=== PATIENT | male | born 1950 | race African-American/Black ===

== ENCOUNTER 2017-12-17 09:03 | Emergency (ER) | payer OTHER ==
--- NOTE | 2017-12-17 09:47 | EDPHY ---
HPI/HX/ROS/PE/MDM Narrative: CHIEF COMPLAINT: Chest pain HISTORY OF PRESENT ILLNESS: The patient is a 67 y/o male with a history of hypertension complaining of right -sided chest pain onset yesterday morning. After the chest pain started he took two Aspirin and then subsequently slept all day yesterday and last night, which is abnormal. The pain is currently localized to the right side of his chest and is a 6/10. He occasionally has mild shortness of breath. While walking around he feels mildly lightheaded. The pain does not change when he takes a deep breath. Denies history of DVT or PE, denies smoking although he did smoke cigars 15 years ago. He has also had right lower jaw pain for the last several months, which he has seen a dentist for. He denies taking antibiotics for the dental pain. No fever, chills, palpitations, vomiting, diarrhea, urinary complaints, headache. REVIEW OF SYSTEMS: Aside from elements discussed in the HPI, a comprehensive 10-system review of systems was reviewed and is negative. PAST MEDICAL HISTORY: Hypertension, BPH SOCIAL HISTORY: Friend at bedside, employed, former cigar smoker VITAL SIGNS: Reviewed by me GENERAL: Well-developed, well-nourished, resting comfortably in no respiratory distress. HEENT: Atraumatic. Eyes: No icterus, no injection. Mouth: moist mucous membranes. No erythema or lesions. Neck: supple with no adenopathy. LUNGS: Clear to auscultation bilaterally, no wheezes, rhonchi or rales. CARDIAC: Regular rate and rhythm, no rubs, murmurs or gallops. ABDOMEN: Soft, nontender, nondistended, bowel sounds normal. BACK: No CVA tenderness. EXTREMITIES: No trauma. No edema. Range of motion is normal throughout. NEURO: Alert and oriented, grossly nonfocal. SKIN: Warm and dry, no rash. PSYCHIATRIC: Normal mentation, no agitation. Portions of this note were transcribed by a medical record librarians teacher. I personally performed a history, physical exam, medical decision making, and confirmed accuracy of information the transcribed note. ED Course: The patient is a 67 y/o male with a history of hypertension complaining of right -sided chest pain and fatigue onset yesterday morning. He has a normal exam including a regular heart and clear lungs. Labs, EKG, and chest x-ray ordered; 324mg PO Aspirin administered. 0918: 12-LEAD EKG: Please see the full report in [facility]. My interpretation: Sinus rhythm with a rate of 52, probable left atrial enlargement , left ventricular hypertrophy. No significant ST or T-wave changes. 1049: I reviewed patient's chest x-ray which reveals a bronchitis. Radiologist reading still pending. 1147: I spoke with the radiologist who agrees with my findings of bronchitis. Albuterol nebulizer administered prior to discharge. Reassessed patient and discussed laboratory and imaging findings. I have prescribed him an albuterol inhaler. Return precautions provided; patient is comfortable with this plan. 67-year-old male with history of hypertension with right-sided pain. Pain is been present since yesterday. He does report a mild URI as well. Troponin negative. D-dimer negative. Chest x-ray demonstrates mild bronchitis. Patient better following a neb. Patient also has a mildly elevated lipase. His possible at some of this right-sided pain is secondary to mild pancreatitis although the patient denies any nausea or vomiting. Liver function tests are normal. Patient will require follow-up. MDM: After history and physical examination, the differential for chest pain was considered, including but not limited to, myocardial ischemia, acute coronary syndrome, pulmonary embolus, chest wall pain, pleural inflammation and pulmonary infectious causes. - Data Points Imaging Results: Imaging Impressions Chest X-Ray 12/17/17 10:04 Impression: Possible airways disease/bronchitis. Imaging: Discussed imaging studies w/ vallez filter operator Radiologist, I viewed and interpreted images myself Laboratory Results: Laboratory Results 12/17/17 09:23 12/17/17 09:23 12/17/17 12/17/17 12/17/17 09:23 09:23 09:23 WBC 5.37 10^3/uL 10^3/uL (3.80-9.50) RBC 5.60 10^6/uL 10^6/uL (4.40-6.38) Hgb 14.0 g/dL g/dL (13.7-17.5) Hct 44.9 % % (40.0-51.0) MCV 80.2 fL L fL (81.5-99.8) MCH 25.0 pg L pg (27.9-34.1) MCHC 31.2 g/dL L g/dL (32.4-36.7) RDW 14.5 % % (11.5-15.2) Plt Count 182 10^3/uL 10^3/uL (150-400) MPV 10.9 fL fL (8.7-11.7) Neut % (Auto) 67.0 % % (39.3-74.2) Lymph % (Auto) 22.9 % % (15.0-45.0) Gove % (Auto) 6.3 % % (4.5-13.0) Eos % (Auto) 3.2 % % (0.6-7.6) Baso % (Auto) 0.4 % % (0.3-1.7) Nucleat RBC Rel Count 0.0 % % (0.0-0.2) Absolute Neuts (auto) 3.60 10^3/uL 10^3/uL (1.70-6.50) Absolute Lymphs (auto) 1.23 10^3/uL 10^3/uL (1.00-3.00) Absolute Monos (auto) 0.34 10^3/uL 10^3/uL (0.30-0.80) Absolute Eos (auto) 0.17 10^3/uL 10^3/uL (0.03-0.40) Absolute Basos (auto) 0.02 10^3/uL 10^3/uL (0.02-0.10) Absolute Nucleated RBC 0.00 10^3/uL 10^3/uL (0-0.01) Immature Gran % 0.2 % % (0.0-1.1) Immature Gran # 0.01 10^3/uL 10^3/uL (0.00-0.10) D-Dimer 0.28 ug/mLFEU ug/mLFEU (0.00-0.50) Sodium 140 mEq/L mEq/L (135-145) Potassium 3.8 mEq/L mEq/L (3.3-5.0) Chloride 105 mEq/L mEq/L (97-110) Carbon Dioxide 24 mEq/l mEq/l (22-31) Anion Gap 11 mEq/L mEq/L (8-16) BUN 12 mg/dL mg/dL (7-23) Creatinine 1.2 mg/dL mg/dL (0.7-1.3) Estimated GFR 60 Glucose 106 mg/dL H mg/dL (70-100) Calcium 9.6 mg/dL mg/dL (8.5-10.4) Total Bilirubin 0.5 mg/dL mg/dL (0.1-1.4) Conjugated Bilirubin 0.1 mg/dL mg/dL (0.0-0.5) Unconjugated Bilirubin 0.4 mg/dL mg/dL (0.0-1.1) AST 26 IU/L IU/L (17-59) ALT 35 IU/L IU/L (21-72) Alkaline Phosphatase 57 IU/L IU/L (38-126) POC Troponin I Total Protein 7.1 g/dL g/dL (6.3-8.2) Albumin 4.0 g/dL g/dL (3.5-5.0) Lipase 437 IU/L H IU/L (23-300) 12/17/17 09:23 WBC RBC Hgb Hct MCV MCH MCHC RDW Plt Count MPV Neut % (Auto) Lymph % (Auto) Gove % (Auto) Eos % (Auto) Baso % (Auto) Nucleat RBC Rel Count Absolute Neuts (auto) Absolute Lymphs (auto) Absolute Monos (auto) Absolute Eos (auto) Absolute Basos (auto) Absolute Nucleated RBC Immature Gran % Immature Gran # D-Dimer Sodium Potassium Chloride Carbon Dioxide Anion Gap BUN Creatinine Estimated GFR Glucose Calcium Total Bilirubin Conjugated Bilirubin Unconjugated Bilirubin AST ALT Alkaline Phosphatase POC Troponin I 0.01 ng/mL ng/mL (0.00-0.08) Total Protein Albumin Lipase Medications Given: Discontinued Medications Albuterol (Proventil Neb) 3 ml IH EDNOW ONE Stop: 12/17/17 11:51 Last Admin: 12/17/17 12:13 Dose: 3 ml Aspirin (Aspirin) 324 mg PO EDNOW ONE Stop: 12/17/17 10:05 Last Admin: 12/17/17 10:15 Dose: 324 mg Point of Care Test Results: Chemistry 12/17/17 09:23 POC Troponin I 0.01 ng/mL ng/mL (0.00-0.08) General Time Seen by Provider: 12/17/17 09:40 Initial Vital Signs: Initial Vital Signs Temperature (C) 36.9 C 12/17/17 09:08 Heart Rate 65 12/17/17 09:08 Respiratory Rate 16 12/17/17 09:08 Blood Pressure 116/92 H 12/17/17 09:08 O2 Sat (%) 95 12/17/17 09:08 O2 Delivery Mode Room Air Allergies/Adverse Reactions: No Known Allergies Allergy (Unverified 12/17/17 09:07) Home Medications: Medication Instructions Recorded Albuterol Hfa Anes Only [Proair 2 puffs IH QID #1 mdi 12/17/17 Hfa Icu (*)] Flomax 12/17/17 Departure - Departure Disposition: Home, Routine, Self-Care Clinical Impression: Bronchitis, Elevated lipase Condition: Good Instructions: Acute Bronchitis (ED), Chest Pain (ED) Additional Instructions: Use the albuterol inhaler as prescribed for your bronchitis. Follow-up with your primary doctor within 72 hours. Return to the Emergency Department for fever, chest pain, shortness of breath, increasing pain or other worsening of condition. Referrals: Demetrio Murphy MD [Primary Care Provider] - As per Instructions Prescriptions: Albuterol Hfa Anes Only [Proair Hfa Icu (*)] 2 puffs IH QID #1 mdi Report Scribed for: Louise Deras Report Scribed by: Laya Ribeiro Date of Report: 12/17/17 Time of Report: 09:47
[2017-12-17] MEDS ORDERED: ASPIRIN 81 MG CHEWABLE TAB PO ONE (10:04)
[2017-12-17 10:18] LABS: PLATELET COUNT 182 10^3/uL (150-400)
[2017-12-17] MEDS ORDERED: ALBUTEROL 3 ML DEYVIAL IH ONE (11:50)
[2017-12-17 12:20] VITALS: BP 160/78
--- NOTE | 2017-12-17 16:11 | CPEKG ---
Test Reason : OPEN Blood Pressure : / mmHG Vent. Rate : 052 BPM Atrial Rate : 051 BPM P-R Int : 145 ms QRS Dur : 109 ms QT Int : 410 ms P-R-T Axes : 076 062 058 degrees QTc Int : 382 ms Sinus rhythm Probable left atrial enlargement Left ventricular hypertrophy Confirmed by Louise Deras [id number] on 12/17/2017 4:10:53 PM Referred By: Confirmed By:Louise Deras
== END 2017-12-17 12:37 | disposition home or self-care (01) ==
DX: J40 Bronchitis, not specified as acute or chronic (principal); R74.8 Abnormal levels of other serum enzymes; I10 Essential (primary) hypertension; Z87.891 Personal history of nicotine dependence
CPT/HCPCS: 71046; 93005; 99285; J7613; 84484-PO